=== PATIENT | female | born 1970 | race Caucasian/White ===

== ENCOUNTER 2021-03-19 19:08 | Inpatient (IN) | payer MEDICAID ==
[~2021-03-19] VITALS: Ht 167.6 cm; Wt 86.2 kg
[~2021-03-19 19:08] MED LIST: OXYC-302 PO
[2021-03-19 19:41] LABS: BASOPHILS % (AUTO) 0 % (0-1); EOSINOPHILS % (AUTO) 0 % (1-7); LYMPHOCYTES % (AUTO) 8 % (22-44); MEAN CORPUSCULAR HEMOGLOBIN 28.7 pg (27.0-34.8); MEAN PLATELET VOLUME 9.5 fL (7.4-10.4); MONOCYTES % (AUTO) 6 % (2-9); NEUTROPHILS % (AUTO) 86 % (42-75); PLATELET COUNT 279 x10^3/uL (130-400); RED BLOOD COUNT 4.62 x10^6/uL (3.82-5.3)
[2021-03-19 19:52] LABS: ALANINE AMINOTRANSFERASE 40 U/L (12-78); ALBUMIN 3.3 g/dL (3.4-5.0); ANION GAP 7 mmol/L (5-15); CALCIUM 8.8 mg/dL (8.5-10.1); CHLORIDE 107 mmol/L (98-107); CREATININE 1.01 mg/dL (0.55-1.02)
[2021-03-19 19:56] LABS: ALKALINE PHOSPHATASE 105 U/L (45-117); BILIRUBIN,TOTAL 0.4 mg/dL (0.2-1.0); TROPONIN I < 0.015 ng/mL (0.000-0.045)
--- NOTE | 2021-03-19 20:58 | NUR ---
PT BACK TO ROOM FROM TRIAGE
--- NOTE | 2021-03-19 21:27 | NUR ---
APPY YESTERDAY, NOW HAS ABD/FLANK 10/10 SHARP PAIN WHEN SHE LIFTS HER RIGHT ARM. STATES PAIN "SHOOTS DOWN RIGHT ARM WHEN I LIFT IT ACROSS THE LEFT SIDE OF MY ABD AND ACROSS THE RIGHT SIDE OF MY BACK". STATES SHE TOOK AN OXY "A FEW HOURS AGO". ALSO STATES SHE CAN'T SIT DOWN, PT CURRENTLY SITTING AT EDGE OF BED. ADVISED TO COME TO ER.
--- NOTE | 2021-03-19 21:30 | NUR ---
ALSO HAS COUGH AND SOB
[2021-03-19] MEDS ORDERED: MORPHINE SULFATE 4 MG/ML, 1ML ONE (21:53)
[2021-03-19] MEDS ORDERED: ONDANSETRON 2MG/ML, 2ML ONE (21:53)
[2021-03-19] MEDS ORDERED: MORPHINE SULFATE 4 MG/ML, 1ML IVPush PRN (22:00)
[2021-03-19] MEDS ORDERED: ONDANSETRON 2MG/ML, 2ML IVPush ONE (22:00)
[2021-03-19] MEDS ORDERED: SODIUM CHLORIDE 0.9% 1,000ML IVBOLUS ONE (22:00)
[2021-03-19] MEDS ORDERED: OMNIPAQUE 350 MG/ML, 100ML BOTTLE ONE (22:30)
[2021-03-19 22:44] LABS: MICROSCOPIC INDICATED
[2021-03-20] MEDS ORDERED: HYDROmorphone 1 MG/ML, 1ML INJ ONE (00:25)
[2021-03-20] MEDS ORDERED: PIPERACILLIN/TAZO 3.375 GM in DEXTROSE 5% 50 ML IVPB ONE (00:30)
[2021-03-20] MEDS ORDERED: HYDROmorphone 1 MG/ML, 1ML INJ IV ONE (00:30)
[2021-03-20] MEDS ORDERED: ONDANSETRON 2MG/ML, 2ML IVPush PRN (01:00)
[2021-03-20] MEDS ORDERED: morphine SULFATE 10 MG/ML, 1ML IV PRN (01:00)
--- NOTE | 2021-03-20 01:16 | NUR ---
REPORT GIVEN TO JOANIE FUNG
[2021-03-20 01:32] VITALS: BP 130/86
[2021-03-20 01:54] VITALS: BP 130/86
[2021-03-20] MEDS: LACTATED RINGERS 1,000 ML IV SCH ×3 (02:13→17:34)
[2021-03-20] MEDS ORDERED: OXYcodone IR 5MG TABLET PO PRN (04:00)
[2021-03-20] MEDS ORDERED: LABETALOL 5MG/ML, 20ML IVPush PRN (04:00)
[2021-03-20] MEDS ORDERED: DIAZEPAM 5 MG/ML, 2ML IV ONE (04:00)
[2021-03-20] MEDS ORDERED: DIPHENHYDRAMINE 25 MG CAPSULE PO PRN (04:00)
[2021-03-20] MEDS ORDERED: ACETAMINOPHEN 325 MG TABLET PO PRN (04:00)
[2021-03-20] MEDS: NICOTINE 7 MG/24 HR PATCH.TD24 TD SCH (04:29)
[2021-03-20 07:35] VITALS: BP 109/70
[2021-03-20] MEDS: PIPERACILLIN/TAZO 3.375 GM in DEXTROSE 5% 50 ML IV SCH ×3 (07:49→20:08)
[2021-03-20] MEDS: SENNA/DOCUSATE TABLET PO SCH (09:22)
[2021-03-20 12:31] VITALS: BP 110/69
[2021-03-20] MEDS: CYCLOBENZAPRINE 10 MG TABLET PO SCH ×3 (13:27→20:08)
[2021-03-20] MEDS: HYDROcodone/APAP 5/325 TABLET PO PRN ×2 (13:29→20:08)
[2021-03-20 20:44] VITALS: BP 118/64
[2021-03-20 21:25] VITALS: BP 109/69
[2021-03-21 00:59] VITALS: BP 110/71
[2021-03-21] MEDS: PIPERACILLIN/TAZO 3.375 GM in DEXTROSE 5% 50 ML IV SCH ×3 (01:18→13:05)
[2021-03-21] MEDS: LACTATED RINGERS 1,000 ML IV SCH ×2 (04:20→12:11)
[2021-03-21] MEDS: NICOTINE 7 MG/24 HR PATCH.TD24 TD SCH (04:24)
[2021-03-21 05:47] LABS: BASOPHILS % (AUTO) 1 % (0-1); EOSINOPHILS % (AUTO) 2 % (1-7); LYMPHOCYTES % (AUTO) 39 % (22-44); MEAN CORPUSCULAR HEMOGLOBIN 29.4 pg (27.0-34.8); MEAN CORPUSCULAR HGB CONC 33.5 g/dL (32.4-35.8); MEAN PLATELET VOLUME 9.7 fL (7.4-10.4); MONOCYTES % (AUTO) 7 % (2-9); NEUTROPHILS % (AUTO) 52 % (42-75); PLATELET COUNT 196 x10^3/uL (130-400); RED BLOOD COUNT 3.79 x10^6/uL (3.82-5.3); RED CELL DISTRIBUTION WIDTH 14.9 % (9.6-15.2)
[2021-03-21 05:54] LABS: CHLORIDE 111 mmol/L (98-107)
[2021-03-21 06:08] LABS: ALANINE AMINOTRANSFERASE 20 U/L (12-78); ALBUMIN 2.2 g/dL (3.4-5.0); ALKALINE PHOSPHATASE 62 U/L (45-117); ANION GAP 7 mmol/L (5-15); BILIRUBIN,TOTAL 0.4 mg/dL (0.2-1.0); CALCIUM 7.7 mg/dL (8.5-10.1); CREATININE 0.65 mg/dL (0.55-1.02); TOTAL PROTEIN 5.7 g/dL (6.4-8.2)
[2021-03-21] MEDS: HYDROcodone/APAP 5/325 TABLET PO PRN ×2 (06:22→12:11)
[2021-03-21] MEDS ORDERED: GADOTERATE 7.5 MMOL/15ML SYR ONE (07:06)
[2021-03-21 07:34] VITALS: BP 118/77
[2021-03-21] MEDS: SENNA/DOCUSATE TABLET PO SCH (08:08)
[2021-03-21] MEDS: CYCLOBENZAPRINE 10 MG TABLET PO SCH ×2 (08:08→15:47)
[2021-03-21] MEDS ORDERED: CLOPIDOGREL 75 MG TABLET PO SCH ×2 (09:00→12:30)
[2021-03-21 11:38] VITALS: BP 106/68
[2021-03-21] MEDS ORDERED: SENN-211 PO (16:18)
[2021-03-21] MEDS ORDERED: HYDR-2214 PO (16:18)
[2021-03-21] MEDS ORDERED: CLOP75TA PO (16:18)
[2021-03-21] MEDS ORDERED: CYCL10TA2 PO (16:18)
== END 2021-03-21 18:00 | disposition left against medical advice (07) | DRG 558 ==
LOC: ED 19:38 → EDIP 03-20 00:15 → INTOOBSV 03-20 00:15 → 3N 03-20 01:28 → OBSVTOIN 03-20 16:09 → 4WST 03-20 21:17
PROVIDERS: ADMIT Family Medicine; ATTEND Internal Medicine
DX: M75.101 Unspecified rotator cuff tear or rupture of right shoulder, not specified as traumatic (principal); J98.11 Atelectasis; M75.01 Adhesive capsulitis of right shoulder; Z53.29 Procedure and treatment not carried out because of patient's decision for other reasons; D72.829 Elevated white blood cell count, unspecified; E66.9 Obesity, unspecified; J45.909 Unspecified asthma, uncomplicated; F17.210 Nicotine dependence, cigarettes, uncomplicated; R73.9 Hyperglycemia, unspecified; G40.909 Epilepsy, unspecified, not intractable, without status epilepticus; I25.2 Old myocardial infarction; Z68.30 Body mass index [BMI] 30.0-30.9, adult; Z80.6 Family history of leukemia; Z82.5 Family history of asthma and other chronic lower respiratory diseases; Z86.73 Personal history of transient ischemic attack (TIA), and cerebral infarction without residual deficits; Z90.49 Acquired absence of other specified parts of digestive tract; Z88.6 Allergy status to analgesic agent; Z88.8 Allergy status to other drugs, medicaments and biological substances; Z79.899 Other long term (current) drug therapy
CPT/HCPCS: 36415; 70553; 71045; 71275; 74177; 80053; 81001; 83735; 84484; 85025; 87040; 93005; 93880; 96361; 96374; 96375; 99285; G0378; J1170; J2405; J2543; J3360; Q9967; A9575; J2270; J7030; J7120